=== PATIENT | male | born 1965 | race Caucasian/White ===

== ENCOUNTER 2021-06-01 21:09 | Emergency (ER) | payer MEDICAID ==
[~2021-06-01] VITALS: Ht 175.3 cm; Wt 75.0 kg
--- NOTE | 2021-06-01 21:39 | NUR ---
PT'S KNIFE AND SHARP OBJECTS WERE TAKEN TO SAFE BY SECURITY
--- NOTE | 2021-06-01 21:54 | NUR ---
Patient states he is being accused "Fucked up faction and things that go against what I was brought up to do. People that I may have been involved in at some level don't trust me." "There are vehicles following m here- then there would be no chance for me to prove myself. My own damn fault for getting involved with the women that I do". "Since I am somewhat of a womanizer and a slut". Complains he is feeling anxious and pissed off.
[2021-06-01] MEDS ORDERED: NO HOME MEDS (21:56)
[2021-06-01 22:09] LABS: BASOPHILS # (AUTO) 0.1 X10'3 (0-0.2); BASOPHILS % (AUTO) 0.5 % (0-1); EOSINOPHILS # (AUTO) 0.3 X10'3 (0-0.9); HEMATOCRIT 38.2 % (42.0-52.0); HEMOGLOBIN 13.3 g/dl (14.0-17.9); LYMPHOCYTES # (AUTO) 2.6 X10'3 (1.1-4.8); LYMPHOCYTES % (AUTO) 23.9 % (21-51); MEAN CORPUSCULAR HEMOGLOBIN 32.3 PG (27.0-31.0); MEAN CORPUSCULAR HGB CONC 34.7 g/dL (33.0-36.5); MEAN CORPUSCULAR VOLUME 93.1 FL (78-98); MEAN PLATELET VOLUME 6.8 FL (7.4-10.4); MONOCYTES % (AUTO) 9.3 % (2-12); NEUTROPHILS # (AUTO) 6.7 X10'3 (1.8-7.7); NEUTROPHILS % (AUTO) 63.3 % (42-75); PLATELET COUNT 295 X10'3 (140-440); RED BLOOD COUNT 4.11 X10'6 (4.70-6.10); RED CELL DISTRIBUTION WIDTH 13.9 % (11.5-14.5); WHITE BLOOD COUNT 10.7 X10'3 (4.5-11.0)
[2021-06-01 22:26] LABS: ALANINE AMINOTRANSFERASE 28 U/L (12-78); ALBUMIN 3.2 G/DL (3.4-5.0); ALBUMIN/GLOBULIN RATIO 0.9 (1.1-1.5); ALKALINE PHOSPHATASE 90 IU/L (46-116); ASPARTATE AMINO TRANSFERASE 29 U/L (10-37); BILIRUBIN,TOTAL 0.5 MG/DL (0.1-1.0); BLOOD UREA NITROGEN 13 MG/DL (7-18); BUN/CREATININE RATIO 14.1 (5.4-32.0); CALCIUM 8.1 MG/DL (8.5-10.1); CREATININE 0.92 MG/DL (0.60-1.10); ETHANOL 0.055 GM/DL (0.0-0.010); GLUCOSE 138 MG/DL (70-104); TOTAL CARBON DIOXIDE 21.3 MMOL/L (24-32); TOTAL PROTEIN 6.9 G/DL (6.4-8.2); eGFR 86 ML/MIN
[2021-06-01 23:02] LABS: ANION GAP 14 (8-16); CHLORIDE 104 MMOL/L (99-107); POTASSIUM 3.2 MMOL/L (3.5-5.1); SODIUM 139 MMOL/L (135-145)
[2021-06-01] MEDS ORDERED: acetaminophen 325mg tablet PO ONE (23:30)
--- NOTE | 2021-06-02 01:02 | NUR ---
pt moved to overflow bed 21. pt is cooperative for move. pt given snack and is now resting.
--- NOTE | 2021-06-02 03:16 | NUR ---
pt is sleeping, no s/s distress noted.
--- NOTE | 2021-06-02 06:56 | NUR ---
took report from kal martinez. pt is lying in bed on back, appears asleep at this time. no s/s acute distres. respirations even and unlabored. will attempt to obtain urine sample when pt awakes
--- NOTE | 2021-06-02 13:25 | NUR ---
PT SLEEPING QUIETLY
[2021-06-02] MEDS ORDERED: acetaminophen 325mg tablet PO ONE (18:40)
--- NOTE | 2021-06-02 18:42 | NUR ---
One to one with the patient and requested the patient give a urine sample which he did give. He admits to chronic methamphetamine use. He had a bottle of liquid that he brought in and that was removed. The patient is having paranoid thoughts that people are after him and want to do him harm. 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 He has been at [facility] and [facility] within the last 6 months. He complained of foot pain after walking for 4 days. PA made aware and tylenol ordered. He reports that he will kill himself or harm someone else if he feels his life is in danger.
[2021-06-02 18:45] LABS: URINE AMPHETAMINE SCREEN POSITIVE (Neg); URINE BARBITUATE SCREEN NEGATIVE (Neg); URINE BENZODIAZEPINES SCREEN NEGATIVE (Neg); URINE CANNABINOID SCREEN POSITIVE (Neg); URINE COCAINE SCREEN NEGATIVE (Neg); URINE METHADONE SCREEN NEGATIVE (Neg); URINE OPIATE SCREEN NEGATIVE (Neg); URINE PHENCYCLIDINE SCREEN NEGATIVE (Neg)
--- NOTE | 2021-06-02 19:11 | NUR ---
packet sent to [facility]
--- NOTE | 2021-06-02 21:12 | NUR ---
The patient was seen by [facility] and placed on a 5150 hold. He is currently resting on his bed and appears to be sleeping
--- NOTE | 2021-06-02 23:01 | NUR ---
The patient appears to be sleeping
--- NOTE | 2021-06-03 01:12 | NUR ---
The patient appears to be sleeping
--- NOTE | 2021-06-03 03:06 | NUR ---
The patient appears to be sleeping
--- NOTE | 2021-06-03 04:36 | NUR ---
The patient up to use the bathroom
--- NOTE | 2021-06-03 07:00 | NUR ---
Pt. asleep in bed lying supine. Normal R&R of respirations observed.
--- NOTE | 2021-06-03 09:00 | NUR ---
1:1 done at bedside, pt. is agitated and paranoid, stating, "Why are you guys always wanting to take my blood, what's that about?". Pt. reports previous suicide attempts but did not want to say when or how. When asked about current SI pt. stated, "Not before I take out the people in front of me". Pt. reports he is here because people were "after me". Addendum: 06/03/21 at 1011 by AARON Pt. denies A/V hallucinations.
--- NOTE | 2021-06-03 11:00 | NUR ---
Pt. asleep in supine position in bed. Pt. awoken and informed of need for U/A. Pt. states he will when he has the urge to urinate.
--- NOTE | 2021-06-03 12:25 | NUR ---
Urine specimen obtained for U/A and sent to lab.
--- NOTE | 2021-06-03 13:02 | NUR ---
Pt. awake and lying supine in bed. Normal R&R of respiration observed. No signs of distress observed.
[2021-06-03 13:03] LABS: CLARITY,URINE CLEAR (Clear); COLOR,URINE YELLOW (Yellow); GLUCOSE, URINE NEGATIVE (Neg); KETONES,URINE NEGATIVE (Neg); LEUKOCYTE ESTERASE ,URINE NEGATIVE (Neg); NITRITES, URINE NEGATIVE (Neg); OCCULT BLOOD,URINE NEGATIVE (Neg); PROTEIN,URINE NEGATIVE (Neg)
[2021-06-03 13:11] LABS: UA COLLECTION TYPE NON-SPECIFIED
--- NOTE | 2021-06-03 14:00 | NUR ---
RN spoke with provider regarding pt.'s decreased K+ of 3.2 from lab draw from 06/01. No further action to be taken.
[2021-06-03] MEDS ORDERED: nicotine 14mg patch - 24hr TD ONE (14:45)
--- NOTE | 2021-06-03 15:00 | NUR ---
Pt. asleep and lying in bed in supine position. Normal R&R of respiration observed. Pt. in no apparent distress.
--- NOTE | 2021-06-03 17:01 | NUR ---
Pt. asleep in bed, lying on left side. Normal R&R of respirations observed. Pt. in no apparent distress.
[2021-06-03] MEDS ORDERED: olanzapine 10mg tablet PO ONE (18:41)
--- NOTE | 2021-06-03 18:47 | NUR ---
One to one with the patient to update him on the plan of care. He continues to feel paranoid and threatened by unknown people for unknown reasons. He continues to state he needs to kill himself before someone kills him. He stated that "every time I wake up people are looking through the vent at me" He described his mood as "between paranoid and ready to fight" Discussed patient's symptoms with MARTIN Pisano and orders received.
--- NOTE | 2021-06-03 21:00 | NUR ---
The patient appears to be sleeping
--- NOTE | 2021-06-03 22:42 | NUR ---
The patient appears to be sleeping
--- NOTE | 2021-06-04 00:26 | NUR ---
The patient appears to be sleeping
--- NOTE | 2021-06-04 02:02 | NUR ---
The patient appears to be sleeping
--- NOTE | 2021-06-04 03:45 | NUR ---
THe patient appears to be sleeping
--- NOTE | 2021-06-04 07:00 | NUR ---
Pt. asleep in bed, lying on left side. Normal rate and rhythm of respirations observed.
--- NOTE | 2021-06-04 09:00 | NUR ---
Pt. asleep in bed, lying on left side. Normal R&R of respirations observed. Pt. in no apparent distress.
[2021-06-04 09:50] VITALS: BP 114/77
== END 2021-06-04 09:56 ==
LOC: ER 21:10
DX: R45.851 Suicidal ideations (principal); Z20.822 Contact with and (suspected) exposure to COVID-19; R45.1 Restlessness and agitation; F31.9 Bipolar disorder, unspecified; F43.10 Post-traumatic stress disorder, unspecified; F12.90 Cannabis use, unspecified, uncomplicated; F15.90 Other stimulant use, unspecified, uncomplicated; Z72.89 Other problems related to lifestyle; Z56.0 Unemployment, unspecified; Z59.0 Homelessness
CPT/HCPCS: 36415; 80053; 80305; 80320; 81003; 82948; 84443; 85025; 87635; 99285; C9803

== ENCOUNTER 2021-06-10 21:14 | Emergency (ER) | payer MEDICAID ==
[~2021-06-10] VITALS: Ht 175.3 cm; Wt 72.7 kg
[~2021-06-10 21:14] MED LIST: NO HOME MEDS
[2021-06-10 21:36] VITALS: BP 148/96
[2021-06-10] MEDS ORDERED: LORazepam 1 MG tablet PO STA (21:43)
--- NOTE | 2021-06-10 21:43 | NUR ---
CONSULTED WITH DR PINEDA FOR AN ANTIANXIETY MEDICATION WHILE HE WAITS IN THE LOBBY TO ASSIST HIM WITH HIS ANXIETY/PARANOIA.
[2021-06-11] MEDS ORDERED: QUEtiapine 25mg tablet PO SCH (21:00)
== END 2021-06-11 01:50 | disposition home or self-care (01) ==
LOC: ER 21:15
DX: Z02.89 Encounter for other administrative examinations (principal); R45.851 Suicidal ideations; F12.90 Cannabis use, unspecified, uncomplicated; F15.90 Other stimulant use, unspecified, uncomplicated; Z72.89 Other problems related to lifestyle; Z56.0 Unemployment, unspecified; Z59.0 Homelessness
CPT/HCPCS: 99283